=== PATIENT | female | born 1990 | race Caucasian/White ===

== ENCOUNTER 2016-12-11 14:00 | Emergency (ER) | payer OTHER ==
[~2016-12-11] VITALS: Ht 167.6 cm; Wt 108.9 kg
--- NOTE | 2016-12-11 14:00 | NUR ---
BIB [facility] 80, CHOKED WHILE EATING AT A [employer],BY-STANDER DISLODGED FB BY ABDOMINAL TRUSTS X 5 MINUTES, FACIAL PETECHIA NOTED
[2016-12-11] MEDS ORDERED: LIDOCAINE VISCOUS 2% UD 15 ML UDC ONE (14:22)
[2016-12-11] MEDS ORDERED: LIDOCAINE VISCOUS 2% UD 15 ML UDC MM ONE (14:30)
--- NOTE | 2016-12-11 15:53 | NUR ---
Patient discharged to home in stable condition. Written and verbal after care instructions given. Patient verbalizes understanding of instruction.
--- NOTE | 2016-12-11 15:53 | NUR ---
IV removed. Catheter intact and site benign. Pressure and 4x4 applied to site. No bleeding noted.
[2016-12-11 15:54] VITALS: BP 135/90
== END 2016-12-11 15:55 | disposition home or self-care (01) ==
LOC: ER 14:01
DX: R09.89 Other specified symptoms and signs involving the circulatory and respiratory systems (principal); H11.32 Conjunctival hemorrhage, left eye
CPT/HCPCS: 70360; 71020; 99284; A4606 ×2; Z7610 ×2

== ENCOUNTER 2018-12-20 11:11 | Emergency (ER) | payer OTHER ==
[~2018-12-20] VITALS: Ht 167.6 cm; Wt 108.9 kg
--- NOTE | 2018-12-20 11:16 | NUR ---
[id number], FROM WORK, C/O ABD PAIN 09/24 PS 20 MINS [employer], -N/V, -DIARRHEA. PATIENT A/OX4, BREATHING EVEN AND UNLABORED, NO SOB NOTED. CHANGED INTO GOWN, ATTACHED TO THE MONITOR.
--- NOTE | 2018-12-20 11:18 | NUR ---
AT BEDSIDE FOR EVAL.
--- NOTE | 2018-12-20 11:28 | NUR ---
RECEIVED A CALL FROM THE EMPLOYER. IF ANY UPDATES REGARDING TRANSPORTATION OR INSURANCE. ASK FOR [facility]CADO. .
[2018-12-20] MEDS ORDERED: FAMOTIDINE/PF INJ 20 MG/2 ML VIAL IV ONE ×2 (11:30→11:38)
[2018-12-20] MEDS ORDERED: LIDOCAINE VISCOUS 2% UD 15 ML UDC MM ONE (11:30)
[2018-12-20] MEDS ORDERED: IV NS 0.9% 1,000 ML BAG IV ONE (11:30)
[2018-12-20] MEDS ORDERED: MAG HYDROX/AL HYDROX/SIMETH 30 ML UDC PO ONE (11:30)
[2018-12-20] MEDS ORDERED: LIDOCAINE VISCOUS 2% UD 15 ML UDC ONE (11:38)
[2018-12-20] MEDS ORDERED: MAG HYDROX/AL HYDROX/SIMETH 30 ML UDC ONE (11:38)
--- NOTE | 2018-12-20 11:40 | NUR ---
US TECH AT BEDSIDE.
[2018-12-20 11:53] LABS: BASOPHILS # (AUTO) 0.2 /CMM (0.0-0.2); BASOPHILS % (AUTO) 1.5 % (0.0-2.0); HEMATOCRIT 41 % (33-45); HEMOGLOBIN 13.3 g/dL (11.5-14.8); LYMPHOCYTES # (AUTO) 2.3 /CMM (0.8-4.8); LYMPHOCYTES % (AUTO) 21.8 % (20.0-44.0); MEAN CORPUSCULAR HGB CONC 32 g/dl (31.0-36.0); MEAN CORPUSCULAR VOLUME 80 fL (82-100); MONOCYTES # (AUTO) 0.8 /CMM (0.1-1.30); MONOCYTES % (AUTO) 7.8 % (2.0-12.0); NEUTROPHILS # (AUTO) 6.7 /CMM (1.8-8.9); NEUTROPHILS % (AUTO) 63.9 % (43.0-81.0); PLATELET COUNT (AUTO) 328 /CMM (150-450); WHITE BLOOD COUNT (AUTO) 10.5 K/uL (4.3-11.0)
[2018-12-20 12:25] LABS: CALCIUM, SERUM 8.7 mg/dL (8.5-10.1); CREATININE 0.9 mg/dL (0.6-1.3); POTASSIUM 4.1 mmol/L (3.5-5.1)
[2018-12-20 12:30] LABS: ALBUMIN 3.5 g/dL (3.4-5.0); BILIRUBIN,DIRECT 0.1 mg/dL (0.0-0.2); BILIRUBIN,TOTAL 0.2 mg/dL (0.2-1.0); TOTAL PROTEIN, SERUM 7.9 g/dL (6.4-8.2)
[2018-12-20 12:39] LABS: BILIRUBIN,URINE Negative (NEGATIVE); BLOOD, URINE Large Ery/uL (NEGATIVE); KETONES,URINE Negative (NEGATIVE); LEUKOCYTE ESTERASE ,URINE Trace (NEGATIVE); NITRITE, URINE Negative (NEGATIVE); PROTEIN,URINE 100 mg/dl (NEGATIVE); UGLUCOSE Negative (NEGATIVE); UROBILINOGEN,URINE 0.2 EU/dL (0.2)
[2018-12-20 12:43] LABS: APPEARANCE,URINE CLOUDY (CLEAR); COLOR,URINE RED (YELLOW)
[2018-12-20 12:44] LABS: BACTERIA,URINE Few /HPF (None Seen); RBC,URINE TOO NUMEROUS TO COUN /HPF (0-2); SQUAMOUS EPITHELIAL CELL,UR Few /HPF (None Seen)
[2018-12-20 13:18] VITALS: BP 111/60
--- NOTE | 2018-12-20 13:18 | NUR ---
Patient denies abdominal pain at this time. IV removed. Catheter intact and site benign. Pressure and 4x4 applied to site. No bleeding noted.Patient discharged to home in stable condition. Written and verbal after care instructions given. Patient verbalizes understanding of instruction. Patient ambulatory with a steady gait
== END 2018-12-20 13:19 | disposition home or self-care (01) ==
LOC: ER 11:13
DX: K80.50 Calculus of bile duct without cholangitis or cholecystitis without obstruction (principal); J45.909 Unspecified asthma, uncomplicated
CPT/HCPCS: 36415; 76705; 80048; 80076; 81001; 83690; 84703; 85025; 87086; 93005; 96374; 99284; J3490; J7030; 81000-TC